=== PATIENT | female | born 1965 | race Caucasian/White ===

== ENCOUNTER 2022-06-20 14:52 | Observation (INO) | payer OTHER ==
--- NOTE | 2022-06-20 16:32 | ED ---
General Adult HPI - General Chief complaint: Recheck/Abnormal Lab/Rx Stated complaint: UTI Time Seen by Provider: 06/20/22 15:30 Source: EMS Mode of arrival: EMS Limitations: no limitations - History of Present Illness Initial comments: This patient is a 57-year-old woman who arrives in the emergency department today with the statement that she needs to have IV antibiotics. The patient explains that she has been treated a number of times as outpatient by her visiting physician for urinary tract infection. The patient states she does have indwelling urinary catheter. She states that when they checked the urine and infection is always found. She has tried a number of rounds of medication but continues to have findings in the urine. The patient denies having any symptoms related to this. Has not noted fever or chills. No chest pain, palpit ations, dyspnea. No pain in the abdomen. -: month(s) Severity scale (1-10): 0 Improves with: none Worsens with: none Treatments Prior to Arrival: other - Related Data Home Medications Medication Instructions Recorded Confirmed Baclofen [Lioresal] 20 mg PO BID@0900,1200 06/20/22 06/20/22 Baclofen [Lioresal] 40 mg PO HS 06/20/22 06/20/22 Cholecalciferol [Vitamin D3 (125 125 mcg PO BID@0900,1600 06/20/22 06/20/22 Mcg = 5000 Iu)] Siponimod [Mayzent] 2 mg PO DAILY@1400 06/20/22 06/20/22 Previous Rx's Medication Instructions Recorded Gabapentin [Neurontin] 100 mg PO BID #6 cap 06/22/22 Allergies Allergy/AdvReac Type Severity Reaction Status Date / Time No Known Allergies Allergy Verified 06/20/22 15:40 Review of Systems ROS Statement: Those systems with pertinent positive or pertinent negative responses have been documented in the HPI. ROS Other: All systems not noted in ROS Statement are negative. Constitutional: Denies: fever, chills, weakness Respiratory: Denies: cough, dyspnea Cardiovascular: Denies: chest pain, palpitations Gastrointestinal: Denies: abdominal pain, vomiting, diarrhea Genitourinary: Reports: as per HPI, other (Chronic indwelling catheter). Denies: dysuria, hematuria Skin: Denies: rash Neurological: Denies: headache, weakness, numbness Past Medical History Past Medical History: Musculoskeletal Disorder History of Any Multi-Drug Resistant Organisms: None Reported Past Surgical History: Cholecystectomy Past Psychological History: No Psychological Hx Reported Smoking Status: Former smoker Past Alcohol Use History: None Reported Past Drug Use History: None Reported - Past Family History Mother Family Medical History: No Reported History Additional Family Medical History / Comment(s): passed at age 74 Father Family Medical History: No Reported History General Exam Limitations: no limitations General appearance: alert, in no apparent distress Head exam: Present: atraumatic, normocephalic Eye exam: Present: normal appearance. Absent: scleral icterus, conjunctival injection Respiratory exam: Present: normal lung sounds bilaterally. Absent: respiratory distress, wheezes, rales, rhonchi, stridor Cardiovascular Exam: Present: regular rate, normal rhythm, normal heart sounds. Absent: systolic murmur, diastolic murmur, rubs, gallop GI/Abdominal exam: Present: soft. Absent: distended, tenderness, guarding, rebound, rigid, mass Extremities exam: Present: normal inspection, normal capillary refill, pedal edema (States this is chronic, unchanged). Absent: calf tenderness Neurological exam: Present: alert Skin exam: Present: warm, dry, intact, normal color. Absent: rash Course Vital Signs 06/20/22 06/20/22 06/20/22 15:02 16:04 19:00 Temperature 97.3 F L Pulse Rate 57 L 58 L Respiratory 18 18 Rate Blood Pressure 131/64 129/61 O2 Sat by Pulse 100 98 Oximetry Medical Decision Making - Medical Decision Making This patient is 57-year-old woman here with concern of possible urinary tract infection. She does have chronic indwelling Matthews catheter. She does arrive also with paperwork showing culture results for pseudomonas. Case is discussed with Dr. Matamoros, who had discussed the case with Dr. Alan, and will admit patient for further care related to urinary tract infection. Was pt. sent in by a medical professional or institution (, PA, ENGINEERING ASSISTANT, urgent care, hospital, or [facility]...) When possible be specific @ -[Patient sent by her primary physician Did you speak to anyone other than the patient for history (EMS, parent, family, police, friend...)? What history was obtained from this source @ -[Family Did you review nursing and triage notes (agree or disagree)? Why? @ -[I reviewed and agree with nursing and triage notes] Were old charts reviewed (outside hosp., previous admission, EMS record, old EKG, old radiological studies, urgent care reports/EKG's, [facility] records)? Report findings @ -[No old charts were reviewed] Differential Diagnosis (chest pain, altered mental status, abdominal pain women, abdominal pain men, vaginal bleeding, weakness, fever, dyspnea, syncope, headache, dizziness, GI bleed, back pain, seizure, CVA, palpatations, mental health, musculoskeletal)? @ -[The differential diagnosis for this visit includes urinary tract infection, colonize Matthews catheter EKG interpreted by me (3pts min.). @ -[ X-rays interpreted by me (1pt min.). @ -[None done] CT interpreted by me (1pt min.). @ -[None done] U/S interpreted by me (1pt. min.). @ -[None done] What testing was considered but not performed or refused? (CT, X-rays, U/S, labs)? Why? @ -[None] What meds were considered but not given or refused? Why? @ -[None] Did you discuss the management of the patient with other professionals (professionals i.e. , PA, ENGINEERING ASSISTANT, lab, RT, psych nurse, social service worker, criminal justice lawyer, teacher, planned giving officer, field nurse case manager)? Give summary @ -[Case discussed with admitting physician Was smoking cessation discussed for >3mins.? @ -[No] Was critical care preformed (if so, how long)? @ -[No] Were there social determinants of health that impacted care today? How? (Homelessness, low income, unemployed, alcoholism, drug addiction, transportation, low edu. Level, literacy, decrease access to med. care, prison, rehab)? @ -[No] Was there de-escalation of care discussed even if they declined (Discuss DNR or withdrawal of care, Hospice)? DNR status @ -[No] What co-morbidities impacted this encounter? (DM, HTN, Smoking, COPD, CAD, Cancer, CVA, ARF, Chemo, Hep., AIDS, mental health diagnosis, sleep apnea, mor bid obesity)? @ -[None] Was patient admitted / discharged? Hospital course, mention meds given and route, prescriptions, significant lab abnormalities, going to OR and other pertinent info. @ -[As above Undiagnosed new problem with uncertain prognosis? @ -[No] Drug Therapy requiring intensive monitoring for toxicity (Heparin, Nitro, Insulin, Cardizem)? @ -[No] Were any procedures done? @ -[No] Diagnosis/symptom? @ -[Acute pyuria Acute, or Chronic, or Acute on Chronic? @ -[default] Uncomplicated (without systemic symptoms) or Complicated (systemic symptoms)? @ -[default] Side effects of treatment? @ -[No] Exacerbation, Progression, or Severe Exacerbation? @ -[No] Poses a threat to life or bodily function? How? (Chest pain, [place], [place], pneumonia, PE, COPD, DKA, ARF, appy, cholecystitis, CVA, Diverticulitis, Homicidal, Suicidal, threat to staff... and all critical care pts) @ -[No] - Lab Data Result diagrams: 06/24/22 06:09 06/25/22 15:49 Lab Results 06/20/22 06/20/22 06/20/22 Range/Units 16:05 16:05 16:05 WBC 2.7 L (3.8-10.6) k/uL RBC 4.01 (3.80-5.40) m/uL Hgb 12.2 (11.4-16.0) gm/dL Hct 38.4 (34.0-46.0) % MCV 95.7 (80.0-100.0) fL MCH 30.3 (25.0-35.0) pg MCHC 31.7 (31.0-37.0) g/dL RDW 14.7 (11.5-15.5) % Plt Count 403 (150-450) k/uL MPV 9.2 Neutrophils % (Manual) 68 % Lymphocytes % (Manual) 7 % Monocytes % (Manual) 20 % Eosinophils % (Manual) 5 % Neutrophils # (Manual) 1.84 (1.3-7.7) k/uL Lymphocytes # (Manual) 0.19 L (1.0-4.8) k/uL Monocytes # (Manual) 0.54 (0-1.0) k/uL Eosinophils # (Manual) 0.14 (0-0.7) k/uL Nucleated RBCs 0 (0-0) /100 WBC Manual Slide Review Performed RBC Morphology Normal Plasma Lactic Acid Josh 0.8 (0.7-2.0) mmol/L Urine Color Light Yellow Urine Appearance Cloudy H (Clear) Urine pH 6.5 (5.0-8.0) Ur Specific [place] 1.006 (1.001-1.035) Urine Protein Negative (Negative) Urine Glucose (UA) Negative (Negative) Urine Ketones Negative (Negative) Urine Blood Negative (Negative) Urine Nitrite Negative (Negative) Urine Bilirubin Negative (Negative) Urine Urobilinogen <2.0 (<2.0) mg/dL Ur Leukocyte Esterase Large H (Negative) Urine RBC 2 (0-5) /hpf Urine WBC 12 H (0-5) /hpf Urine Bacteria Rare H (None) /hpf Disposition Clinical Impression: Urinary tract infection Disposition: ADMITTED IP TO THIS HOSP Condition: Good Is patient prescribed a controlled substance at d/c from ED?: No
[2022-06-20 16:33] LABS: HCT 38.4 % (34.0-46.0); HGB 12.2 gm/dL (11.4-16.0); MCH 30.3 pg (25.0-35.0); MCHC 31.7 g/dL (31.0-37.0); MCV 95.7 fL (80.0-100.0); Mean Platelet Volume 9.2; Platelet Count 403 k/uL (150-450); RBC 4.01 m/uL (3.80-5.40); RDW 14.7 % (11.5-15.5); WBC 2.7 k/uL (3.8-10.6)
[2022-06-20 16:50] LABS: Appearance,Urine Cloudy (Clear); Bacteria,Urine Rare /hpf; Bilirubin,Urine Negative (Negative); Blood,Urine Negative (Negative); Color,Urine Light Yellow; Glucose,Urine (UA) Negative (Negative); Ketones,Urine Negative (Negative); Leukocyte Esterase,Urine Large (Negative); Nitrite,Urine Negative (Negative); PH, Urine 6.5 (5.0-8.0); Protein,Urine Negative (Negative); RBC,Urine 2 /hpf (0-5); Specific Gravity,Urine 1.006 (1.001-1.035); Urobilinogen,Urine <2.0 mg/dL (<2.0); WBC,Urine 12 /hpf (0-5)
[2022-06-20 17:18] LABS: Eosinophils # (M) 0.14 k/uL (0-0.7); Lymphocytes # (M) 0.19 k/uL (1.0-4.8); Monocytes # (M) 0.54 k/uL (0-1.0); Neutrophils # (M) 1.84 k/uL (1.3-7.7); Neutrophils % (M) 68 %; Nucleated Red Blood Cells 0 /100 WBC (0-0); Total Cells Counted 100
[2022-06-20 17:19] LABS: RBC Morphology Normal
[2022-06-20] MEDS ORDERED: NALOXONE 0.4 MG/ML 1 ML VIAL IV PRN (17:46)
[2022-06-20] MEDS: SODIUM CHLORIDE 0.9% 1,000 ML IV SCH (19:02)
[2022-06-20] MEDS: FAMOTIDINE 20 MG TAB PO SCH (19:46)
[2022-06-20] MEDS: ACETAMINOPHEN TAB 325 MG TAB PO PRN (19:46)
[2022-06-20] MEDS ORDERED: CALCIUM CARBONATE 500 MG CHEWABLE PO PRN (21:09)
[2022-06-20] MEDS ORDERED: LORazepam 0.5 MG TAB PO PRN (21:09)
[2022-06-20] MEDS ORDERED: ONDANSETRON 4 MG/2 ML VIAL IVP PRN (21:09)
[2022-06-20] MEDS ORDERED: MELATONIN 3 MG TABLET PO PRN (21:09)
[2022-06-20] MEDS ORDERED: LACTULOSE 20 GM/30 ML CUP PO PRN (21:09)
--- NOTE | 2022-06-20 21:16 | P.HPIM ---
History of Present Illness H&P Date: 06/20/22 Chief Complaint: Urine culture positive This is a pleasant 57-year-old patient, follows with visiting physicians Dr. Alan. Long-standing history of multiple sclerosis. She is more weak on the right side. She is able to move her right arm a bit. Very little to the right leg. We also on the left leg. During the pandemic with no therapy in the left leg also became weak. She is able to use her left arm. She does get spasm on the right leg. Patient's had a Matthews catheter for about 4 months. Last changed 5 days ago. Does have control of her bowel movements and wet diapers. Appetite is good. No fever no chills. Denies any burning/dysuria She was sent in by her primary doctor, as the urine was showing resistant organisms. She's had 3 courses of antibiotics recently including a visit to [facility], [facility]. Review of systems: GEN.: None EYES: None HEENT: None NECK: None RESPIRATORY: None CARDIOVASCULAR: None GASTROINTESTINAL: None GENITOURINARY: Matthews MUSCULOSKELETAL: [Right site spasms LYMPHATICS: None HEMATOLOGICAL: None PSYCHIATRY: None NEUROLOGICAL: Right lower extremity weaker than left lower extremity. Also right upper extremity weak. Some contracture Past medical history to include: Multiple sclerosis. Non-ambulatory. Chronic Matthews catheter. Physical examination: VITAL SIGNS: 97.3, 58, 18, 129/61, 98% room air GENERAL: BMI 20.2, declining but awake slightly anxious. EYES: Pupils equal. Conjunctiva normal. HEENT: External appearance of nose and ears normal, oral cavity grossly normal. NECK: JVD not raised; masses not palpable. HEART: First and second heart sounds are normal; no edema. LUNGS: Respiratory rate normal; clear to auscultation. ABDOMEN: Soft, nontender, liver spleen not palpable, no masses palpable. Matthews catheter PSYCH: Alert and oriented x3; mood and affect a bit anxiousl. MUSCULOSKELETAL:No Clubbing/cyanosis;muscles-grossly intact NEUROLOGICAL: [Cranial nerves grossly intact; no facial asymmetry, power in the right arm 1/5, part of the right lower extremity 1 over 5. Power of the left lower extremity 2/5. Right hand contracted. Patient has some sensation in the right side LYMPHATICS: No lymph nodes palpable in the axilla and neck INVESTIGATIONS, reviewed in the clinical context: White count 2.7 hemoglobin 12.2 platelets 103 UA positive for leukoesterase. 12 WBC. Rare bacteria. Negative nitrite. Assessment and plan: -Patient was sent in for abnormal urine with culture as outpatient. Patient does have any fever or chills. No dysuria. Leukopenia could suggest infection. But the differential shows low lymphocytes. This could be asymptomatic bacteria the presence of Matthews catheter. ID is consulted. Get their input -Chronic bladder dysfunction with chronic Matthews catheter. Matthews catheter was last changed 5 days ago. -Chronic medical debility from underlying multiple sclerosis Patient does use a wheelchair/motorized wheelchair. -Right hemiparesis from multiple sclerosis -Muscle spasms Baclofen. -Multiple sclerosis, chronic mayzent -DO NOT RESUSCITATE per patient wishes Past Medical History Past Medical History: Musculoskeletal Disorder History of Any Multi-Drug Resistant Organisms: None Reported Past Surgical History: Cholecystectomy Past Psychological History: No Psychological Hx Reported Smoking Status: Former smoker Past Alcohol Use History: None Reported Past Drug Use History: None Reported Medications and Allergies Home Medications Medication Instructions Recorded Confirmed Type Baclofen [Lioresal] 20 mg PO BID@0900,1200 06/20/22 06/20/22 History Baclofen [Lioresal] 40 mg PO HS 06/20/22 06/20/22 History Cholecalciferol [Vitamin D3 (125 125 mcg PO BID@0900,1600 06/20/22 06/20/22 History Mcg = 5000 Iu)] Gabapentin [Neurontin] 100 mg PO BID 06/20/22 06/20/22 History Siponimod [Mayzent] 2 mg PO DAILY@1400 06/20/22 06/20/22 History Allergies Allergy/AdvReac Type Severity Reaction Status Date / Time No Known Allergies Allergy Verified 06/20/22 15:40 Physical Exam Vitals: Vital Signs Temp Pulse Resp BP Pulse Ox 06/20/22 19:00 58 L 18 129/61 98 06/20/22 16:04 97.3 F L 06/20/22 15:02 57 L 18 131/64 100 Intake and Output 06/20/22 06/20/22 06/20/22 06:59 14:59 22:59 Other: Voiding Method Indwelling Catheter Weight 58.513 kg Results CBC & Chem 7: 06/20/22 16:05 Labs: Abnormal Lab Results - Last 24 Hours (Table) 06/20/22 06/20/22 Range/Units 16:05 16:05 WBC 2.7 L (3.8-10.6) k/uL Lymphocytes # (Manual) 0.19 L (1.0-4.8) k/uL Urine Appearance Cloudy H (Clear) Ur Leukocyte Esterase Large H (Negative) Urine WBC 12 H (0-5) /hpf Urine Bacteria Rare H (None) /hpf
[2022-06-20] MEDS: GABAPENTIN 100 MG CAP PO SCH (22:19)
[2022-06-20] MEDS: BACLOFEN 10 MG TAB PO SCH (22:49)
[2022-06-21] MEDS: CHOLECALCIFEROL 125 MCG (5000 IU) TABLET PO SCH ×2 (09:20→16:52)
[2022-06-21] MEDS: FAMOTIDINE 20 MG TAB PO SCH ×2 (09:20→20:10)
[2022-06-21] MEDS: BACLOFEN 10 MG TAB PO SCH ×3 (09:20→20:10)
[2022-06-21] MEDS: ENOXAPARIN 40 MG/0.4 ML SYRINGE SQ SCH (09:20)
[2022-06-21] MEDS: GABAPENTIN 100 MG CAP PO SCH ×2 (09:20→20:10)
[2022-06-21] MEDS: SIPONIMOD 2 MG PO SCH (16:01)
[2022-06-21] MEDS: ACETAMINOPHEN TAB 325 MG TAB PO PRN (16:52)
[2022-06-21] MEDS: SODIUM CHLORIDE 0.9% 1,000 ML IV SCH (18:17)
--- NOTE | 2022-06-21 18:53 | P.PN ---
Progress Note - Text Progress Note Date: 06/21/22 Chief Complaint: Urine culture positive This is a pleasant 57-year-old patient, follows with visiting physicians Dr. Alan. Long-standing history of multiple sclerosis. She is more weak on the right side. She is able to move her right arm a bit. Very little to the right leg. We also on the left leg. During the pandemic with no therapy in the left leg also became weak. She is able to use her left arm. She does get spasm on the right leg. Patient's had a Matthews catheter for about 4 months. Last changed 5 days ago. Does have control of her bowel movements and wet diapers. Appetite is good. No fever no chills. Denies any burning/dysuria She was sent in by her primary doctor, as the urine was showing resistant organisms. She's had 3 courses of antibiotics recently including a visit to [facility], [facility]. 06/21/2022: Patient seen by Dr. Mireles from [place]. No acute UTI. No indications antibiotics. We discussed. He also spoke to patient's family doctor Dr. Alan. I also spoke to his teammate. Patient subsequently requested possible rehab. Case management involved. PTOT consulted. Will see patient qualifies for rehab. Has been a total assist. Total time spent today more than 55 minutes Active Medications Acetaminophen (Acetaminophen Tab 325 Mg Tab) 650 mg PO Q6HR PRN PRN Reason: Mild Pain or Fever > 100.5 Last Admin: 06/21/22 16:52 Dose: 650 mg Baclofen (Baclofen 10 Mg Tab) 20 mg PO BID@0900,1200 [facility] Last Admin: 06/21/22 13:02 Dose: 20 mg Baclofen (Baclofen 10 Mg Tab) 40 mg PO HS [facility] Last Admin: 06/20/22 22:49 Dose: 40 mg Calcium Carbonate/Glycine (Calcium Carbonate 500 Mg Chewable) 1,000 mg PO Q4HR PRN PRN Reason: Dyspepsia Cholecalciferol (Cholecalciferol 125 Mcg (5000 Iu) Tablet) 125 mcg PO BID@0900,1600 [facility] Last Admin: 06/21/22 16:52 Dose: 125 mcg Enoxaparin Sodium (Enoxaparin 40 Mg/0.4 Ml Syringe) 40 mg SQ DAILY [facility] Last Admin: 06/21/22 09:20 Dose: 40 mg Famotidine (Famotidine 20 Mg Tab) 20 mg PO BID [facility] Last Admin: 06/21/22 09:20 Dose: 20 mg Gabapentin (Gabapentin 100 Mg Cap) 100 mg PO BID [facility] Last Admin: 06/21/22 09:20 Dose: 100 mg Sodium Chloride (Saline 0.9%) 1,000 mls @ 20 mls/hr IV .Q24H [facility] Last Admin: 06/21/22 18:17 Dose: 20 mls/hr Lactulose (Lactulose 20 Gm/30 Ml Cup) 20 gm PO DAILY PRN PRN Reason: Constipation Lorazepam (Lorazepam 0.5 Mg Tab) 0.5 mg PO Q6HR PRN PRN Reason: Anxiety Melatonin (Melatonin 3 Mg Tablet) 3 mg PO HS PRN PRN Reason: Insomnia Naloxone HCl (Naloxone 0.4 Mg/Ml 1 Ml Vial) 0.2 mg IV Q2M PRN PRN Reason: Opioid Reversal Non-Formulary Medication (Siponimod [Mayzent]) 2 mg PO DAILY@1400 [facility] Last Admin: 06/21/22 16:01 Dose: 2 mg Ondansetron HCl (Ondansetron 4 Mg/2 Ml Vial) 4 mg IVP Q8HR PRN PRN Reason: Nausea And Vomiting Past medical history to include: Multiple sclerosis. Non-ambulatory. Chronic Matthews catheter. Physical examination: VITAL SIGNS: 97.9, 61, 18, 1.5 x 62, 99% room air GENERAL: Laying in bed, comfortable EYES: Pupils equal. Conjunctiva normal. HEENT: External appearance of nose and ears normal, oral cavity grossly normal. NECK: JVD not raised; masses not palpable. HEART: First and second heart sounds are normal; no edema. LUNGS: Respiratory rate normal; clear to auscultation. ABDOMEN: Soft, nontender, liver spleen not palpable, no masses palpable. Matthews catheter PSYCH: Alert and oriented x3; mood and affect a bit anxiousl. MUSCULOSKELETAL:No Clubbing/cyanosis;muscles-grossly intact NEUROLOGICAL: [Cranial nerves grossly intact; no facial asymmetry, power in the right arm 1/5, part of the right lower extremity 1 over 5. Power of the left lower extremity 2/5. Right hand contracted. Patient has some sensation in the right side INVESTIGATIONS, reviewed in the clinical context: White count 2.7 hemoglobin 12.2 platelets 103 UA positive for leukoesterase. 12 WBC. Rare bacteria. Negative nitrite. Assessment and plan: -Asymptomatic bacteriuria. From chronic Matthews catheter. No indication IV antibiotics as discussed with ID. -Chronic bladder dysfunction with chronic Matthews catheter. Matthews catheter was last changed 5 days ago. -Chronic medical debility from underlying multiple sclerosis Patient does use a wheelchair/motorized wheelchair. -Right hemiparesis from multiple sclerosis -Muscle spasms Baclofen. -Multiple sclerosis, chronic mayzent -DO NOT RESUSCITATE per patient wishes Patient wishes to be evaluated for rehab. PTOT involved. compensation and benefits manager consulted.
[2022-06-21] MEDS ORDERED: BACLOFEN 10 MG TAB PO SCH (21:00)
--- NOTE | 2022-06-21 23:15 | P.CONS ---
History of Present Illness - Reason for Consult Consult date: 06/21/22 Urinary tract infection Requesting physician: Hawk Webster - Chief Complaint Positive urine culture as an outpatient X few days - History of Present Illness Patient is a 57-year-old female with a past medical history sniffing for MS in this patient also with a history of recurrent UTI patient apparently recently did have a urine culture done in the outpatient setting on 06/13/2022 came back positive with Pseudomonas aeruginosa that was resistant to Cipro and Levaquin as the patient was sent to the ER for IV antibiotic therapy, however no specifically why she did have a urine culture done with a 15 patient also that her physician wanted to make sure she does not have an infection patient denies having any fever or any chills patient denies having any burning of urine or any suprapubic pain at the time and that urine culture were obtained patient on presentation to the hospital was afebrile and no fever has been recorded subsequently patient denies having any fever or chills no chest pain no shortness of breath or cough no nausea vomiting no abdominal pain and no diarrhea as mentioned earlier no fever was recorded during the hospital stay white count was slightly low 2.7 patient did have a UA which was cloudy with large leukocyte esterase 12 WBC patient was admitted to hospital infectious disease was consulted regarding need for any antibiotic therapy at this point patient also noticed to have a sacral pressure ulcer and need for continued loc al wound care currently being treated with a skin barrier cream per the patient denies having any pain or any discomfort to the sacral area Review of Systems Positive point has been mentioned in the HPI rest of the systems are negative Past Medical History Past Medical History: Musculoskeletal Disorder Additional Past Medical History / Comment(s): MS, non ambulatory for 2 years. chronic urinary catheter. multiple UTI's History of Any Multi-Drug Resistant Organisms: None Reported Past Surgical History: Cholecystectomy Past Anesthesia/Blood Transfusion Reactions: No Reported Reaction Past Psychological History: No Psychological Hx Reported Smoking Status: Former smoker Past Alcohol Use History: None Reported Past Drug Use History: None Reported - Past Family History Mother Family Medical History: No Reported History Additional Family Medical History / Comment(s): passed at age 74 Father Family Medical History: No Reported History Medications and Allergies Home Medications Medication Instructions Recorded Confirmed Type Baclofen [Lioresal] 20 mg PO BID@0900,1200 06/20/22 06/20/22 History Baclofen [Lioresal] 40 mg PO HS 06/20/22 06/20/22 History Cholecalciferol [Vitamin D3 (125 125 mcg PO BID@0900,1600 06/20/22 06/20/22 History Mcg = 5000 Iu)] Siponimod [Mayzent] 2 mg PO DAILY@1400 06/20/22 06/20/22 History Gabapentin [Neurontin] 100 mg PO BID #6 cap 06/22/22 Rx Allergies Allergy/AdvReac Type Severity Reaction Status Date / Time No Known Allergies Allergy Verified 06/20/22 15:40 Physical Exam Vitals: Vital Signs Temp Pulse Pulse Resp BP BP Pulse Ox 06/21/22 08:00 68 18 06/21/22 07:00 97.8 F 68 18 102/54 96 06/21/22 02:00 97.2 F L 63 18 125/67 95 06/20/22 21:50 97.5 F L 63 17 130/74 98 06/20/22 19:00 58 L 18 129/61 98 06/20/22 16:04 97.3 F L 06/20/22 15:02 57 L 18 131/64 100 Intake and Output 06/20/22 06/21/22 06/21/22 22:59 06:59 14:59 Output Total 3950 Balance -3950 Output: Urine 3950 Uretheral (Matthews) 1800 Other: Voiding Method Indwelling Catheter Indwelling Catheter Weight 58.513 kg GENERAL DESCRIPTION: Middle-aged male lying in bed, no distress. No tachypnea or accessory muscle of respiration use. HEENT: Shows Pallor , no scleral icterus. Oral mucous membrane is dry. No p haryngeal erythema or thrush NECK: Trachea central, no thyromegaly. LUNGS: Unlabored breathing. Clear to auscultation anteriorly. No wheeze or crackle. HEART: S1, S2, regular rate and rhythm. No loud murmur ABDOMEN: Soft, no tenderness , guarding or rigidity, no organomegaly EXTREMITIES: No edema of feet. SKIN: No rash, stage I sacral pressure ulcer with no cellulitis NEUROLOGICAL: The patient is awake, alert, oriented x3, mood and affect normal. Results CBC & Chem 7: 06/20/22 16:05 Labs: Abnormal Lab Results - Last 24 Hours (Table) 06/20/22 06/20/22 Range/Units 16:05 16:05 WBC 2.7 L (3.8-10.6) k/uL Lymphocytes # (Manual) 0.19 L (1.0-4.8) k/uL Urine Appearance Cloudy H (Clear) Ur Leukocyte Esterase Large H (Negative) Urine WBC 12 H (0-5) /hpf Urine Bacteria Rare H (None) /hpf Microbiology - Last 24 Hours (Table) 06/20/22 16:05 Urine Culture - Preliminary Urine,Catheterized Assessment and Plan (1) Positive urine culture Current Visit: Yes Status: Acute Code(s): R82.79 - OTHER ABNORMAL FINDINGS ON MICROBIOLOG EXAMINATION OF URINE SNOMED Code(s): 771683314 (2) Stage I pressure ulcer of sacral region Current Visit: Yes Status: Acute Code(s): L89.151 - PRESSURE ULCER OF SACRAL REGION, STAGE 1 SNOMED Code(s): 75092400766737 Plan: 1patient presented to hospital with a positive urine culture done in the outpatient setting growing Pseudomonas aeruginosa likely representing Matthews colonization versus asymptomatic bacteriuria as the patient currently do not have any urinary symptoms not running any fever White count is normal this was explained to the patient and also discussed with her primary care physician in the outpatient setting on the phone. 2there is no need for antibiotic therapy patient has been instructed not to pr ovide urine sample unless she has symptoms of burning of urine and suprapubic pain fever or feeling lethargic. 3patient did have a stage I sacral pressure ulcer given advice skin barrier cream and keep the area of the pressure with the frequent change of position we will follow on clinical condition and cultures to further adjust medication if needed Thank you for this consultation we will follow the patient along with you Time with Patient: Greater than 30
[2022-06-22] MEDS: ENOXAPARIN 40 MG/0.4 ML SYRINGE SQ SCH (08:43)
[2022-06-22] MEDS: FAMOTIDINE 20 MG TAB PO SCH ×2 (08:43→20:22)
[2022-06-22] MEDS: CHOLECALCIFEROL 125 MCG (5000 IU) TABLET PO SCH ×2 (08:43→17:10)
[2022-06-22] MEDS: GABAPENTIN 100 MG CAP PO SCH ×2 (08:43→20:22)
[2022-06-22] MEDS: BACLOFEN 10 MG TAB PO SCH ×3 (08:43→20:22)
[2022-06-22] MEDS: SIPONIMOD 2 MG PO SCH (14:18)
--- NOTE | 2022-06-22 15:57 | P.PN ---
Progress Note - Text Progress Note Date: 06/22/22 Chief Complaint: Urine culture positive This is a pleasant 57-year-old patient, follows with visiting physicians Dr. Alan. Long-standing history of multiple sclerosis. She is more weak on the right side. She is able to move her right arm a bit. Very little to the right leg. We also on the left leg. During the pandemic with no therapy in the left leg also became weak. She is able to use her left arm. She does get spasm on the right leg. Patient's had a Matthews catheter for about 4 months. Last changed 5 days ago. Does have control of her bowel movements and wet diapers. Appetite is good. No fever no chills. Denies any burning/dysuria She was sent in by her primary doctor, as the urine was showing resistant organisms. She's had 3 courses of antibiotics recently including a visit to [facility], [facility]. 06/21/2022: Patient seen by Dr. Weir from [place]. No acute UTI. No indications antibiotics. We discussed. He also spoke to patient's family doctor Dr. Alan. I also spoke to his teammate. Patient subsequently requested possible rehab. Case management involved. PTOT consulted. Will see patient qualifies for rehab. Has been a total assist. Total time spent today more than 55 minutes 06/22/2022: Resting in bed. Comfortable. Seen by physical therapy. Discussed with rehabilitation caseworker. Cesia. Patient with the exception at rehab. Pending authorization from her insurance company. Not be available today. Active Medications Acetaminophen (Acetaminophen Tab 325 Mg Tab) 650 mg PO Q6HR PRN PRN Reason: Mild Pain or Fever > 100.5 Last Admin: 06/21/22 16:52 Dose: 650 mg Baclofen (Baclofen 10 Mg Tab) 20 mg PO BID@0900,1200 [facility] Last Admin: 06/22/22 14:19 Dose: 20 mg Baclofen (Baclofen 10 Mg Tab) 40 mg PO HS [facility] Last Admin: 06/21/22 20:10 Dose: 40 mg Calcium Carbonate/Glycine (Calcium Carbonate 500 Mg Chewable) 1,000 mg PO Q4HR PRN PRN Reason: Dyspepsia Cholecalciferol (Cholecalciferol 125 Mcg (5000 Iu) Tablet) 125 mcg PO BID@0900,1600 [facility] Last Admin: 06/22/22 08:43 Dose: 125 mcg Enoxaparin Sodium (Enoxaparin 40 Mg/0.4 Ml Syringe) 40 mg SQ DAILY [facility] Last Admin: 06/22/22 08:43 Dose: 40 mg Famotidine (Famotidine 20 Mg Tab) 20 mg PO BID [facility] Last Admin: 06/22/22 08:43 Dose: 20 mg Gabapentin (Gabapentin 100 Mg Cap) 100 mg PO BID [facility] Last Admin: 06/22/22 08:43 Dose: 100 mg Sodium Chloride (Saline 0.9%) 1,000 mls @ 20 mls/hr IV .Q24H [facility] Last Admin: 06/21/22 18:17 Dose: 20 mls/hr Lactulose (Lactulose 20 Gm/30 Ml Cup) 20 gm PO DAILY PRN PRN Reason: Constipation Lorazepam (Lorazepam 0.5 Mg Tab) 0.5 mg PO Q6HR PRN PRN Reason: Anxiety Melatonin (Melatonin 3 Mg Tablet) 3 mg PO HS PRN PRN Reason: Insomnia Naloxone HCl (Naloxone 0.4 Mg/Ml 1 Ml Vial) 0.2 mg IV Q2M PRN PRN Reason: Opioid Reversal Non-Formulary Medication (Siponimod [Mayzent]) 2 mg PO DAILY@1400 [facility] Last Admin: 06/22/22 14:18 Dose: 2 mg Ondansetron HCl (Ondansetron 4 Mg/2 Ml Vial) 4 mg IVP Q8HR PRN PRN Reason: Nausea And Vomiting Past medical history to include: Multiple sclerosis. Non-ambulatory. Chronic Matthews catheter. Physical examination: VITAL SIGNS: 98.5, 76, 18, 109/67, 95% room air GENERAL: Laying in bed, comfortable EYES: Pupils equal. Conjunctiva normal. HEENT: External appearance of nose and ears normal, oral cavity grossly normal. NECK: JVD not raised; masses not palpable. HEART: First and second heart sounds are normal; no edema. LUNGS: Respiratory rate normal; clear to auscultation. ABDOMEN: Soft, nontender, liver spleen not palpable, no masses palpable. Matthews catheter PSYCH: Alert and oriented x3; mood and affect a bit anxiousl. MUSCULOSKELETAL:No Clubbing/cyanosis;muscles-grossly intact NEUROLOGICAL: [Cranial nerves grossly intact; no facial asymmetry, power in the right arm 1/5, part of the right lower extremity 1 over 5. Power of the left lower extremity 2/5. Right hand contracted. Patient has some sensation in the right side INVESTIGATIONS, reviewed in the clinical context: White count 2.7 hemoglobin 12.2 platelets 103 UA positive for leukoesterase. 12 WBC. Rare bacteria. Negative nitrite. Assessment and plan: -Asymptomatic bacteriuria. From chronic Matthews catheter. No indication IV antibiotics as discussed with ID. -Chronic bladder dysfunction with chronic Matthews catheter. Matthews catheter was last changed 5 days prior to admission -Chronic medical debility from underlying multiple sclerosis Patient does use a wheelchair/motorized wheelchair. -Right hemiparesis from multiple sclerosis -Muscle spasms Baclofen. -Multiple sclerosis, chronic mayzent -DO NOT RESUSCITATE per patient wishes Patient been accepted at [facility], pending authorization from insurance company.
[2022-06-22] MEDS: SODIUM CHLORIDE 0.9% 1,000 ML IV SCH (19:16)
[2022-06-22] MEDS: ACETAMINOPHEN TAB 325 MG TAB PO PRN (22:03)
[2022-06-23] MEDS: ENOXAPARIN 40 MG/0.4 ML SYRINGE SQ SCH (08:49)
[2022-06-23] MEDS: BACLOFEN 10 MG TAB PO SCH ×3 (08:49→20:42)
[2022-06-23] MEDS: CHOLECALCIFEROL 125 MCG (5000 IU) TABLET PO SCH ×2 (08:49→17:26)
[2022-06-23] MEDS: FAMOTIDINE 20 MG TAB PO SCH ×2 (08:50→20:43)
[2022-06-23] MEDS: GABAPENTIN 100 MG CAP PO SCH ×2 (08:50→20:42)
[2022-06-23] MEDS: ACETAMINOPHEN TAB 325 MG TAB PO PRN ×2 (10:28→20:43)
--- NOTE | 2022-06-23 12:07 | P.PN ---
Subjective Progress Note Date: 06/22/22 Principal diagnosis: Positive urine culture with Pseudomonas Patient is a 57-year-old female with a past medical history significant for MS in this patient also with a history of recurrent UTI patient apparently recently did have a urine culture done in the outpatient setting on 06/13/2022 came back positive with Pseudomonas aeruginosa that was resistant to Cipro and Levaquin as the patient was sent to the ER for IV antibiotic therapy, patient did have MS and a chronic indwelling Matthews catheter. On today's evaluation that is 06/22/2022, the patient denies having any fever or any chills, the patient denies having any chest pain or shortness of breath or cough no abdominal pain no nausea no vomiting and no diarrhea Objective - Vital Signs Vital signs: Vital Signs Temp 98.5 F 06/22/22 07:00 Pulse 76 06/22/22 08:00 Resp 18 06/22/22 08:00 BP 109/67 06/22/22 07:00 Pulse Ox 95 06/22/22 07:00 FiO2 Intake & Output 06/21/22 06/22/22 06/22/22 18:59 06:59 18:59 Intake Total 120 120 Output Total 1000 800 800 Balance -880 -800 -680 Intake: Oral 120 120 Output: Urine 1000 800 800 Other: Voiding Method Indwelling Catheter Indwelling Catheter Indwelling Catheter # Voids 1,200 1,200 # Bowel Movements 2 2 2 - Exam GENERAL DESCRIPTION: Middle-aged female lying in bed in no distress RESPIRATORY SYSTEM: Unlabored breathing , decreased breath sounds at bases HEART: S1 S2 regular rate and rhythm , ABDOMEN: Soft , no tenderness EXTREMITIES: No edema feet - Labs CBC & Chem 7: 06/20/22 16:05 Labs: Microbiology - Last 24 Hours (Table) 06/20/22 16:05 Urine Culture - Preliminary Urine,Catheterized Gram Neg Bacilli 06/20/22 19:40 Blood Culture - Preliminary Blood No Growth after 24 hours 06/20/22 19:30 Blood Culture - Preliminary Blood No Growth after 24 hours Assessment and Plan (1) Positive urine culture Current Visit: Yes Status: Acute Code(s): R82.79 - OTHER ABNORMAL FINDINGS ON MICROBIOLOG EXAMINATION OF URINE SNOMED Code(s): 374573391 (2) Stage I pressure ulcer of sacral region Current Visit: Yes Status: Acute Code(s): L89.151 - PRESSURE ULCER OF SACRAL REGION, STAGE 1 SNOMED Code(s): 83347563196314 Plan: 1patient presented to hospital with a positive urine culture done in the outp atient setting growing Pseudomonas aeruginosa likely representing Matthews colonization versus asymptomatic bacteriuria as the patient currently do not have any urinary symptoms not running any fever White count is normal this was explained to the patient and also discussed with her primary care physician in the outpatient setting on the phone. 2there is no need for antibiotic therapy patient will monitor closely off antibiotic therapy at this point 3patient did have a stage I sacral pressure ulcer given advice skin barrier cream and keep the area of the pressure with the frequent change of position Time with Patient: Less than 30
--- NOTE | 2022-06-23 14:41 | P.PN ---
Subjective Progress Note Date: 06/23/22 Principal diagnosis: Positive urine culture with Pseudomonas Patient is a 57-year-old female with a past medical history significant for MS in this patient also with a history of recurrent UTI patient apparently recently did have a urine culture done in the outpatient setting on 06/13/2022 came back positive with Pseudomonas aeruginosa that was resistant to Cipro and Levaquin as the patient was sent to the ER for IV antibiotic therapy, patient did have MS and a chronic indwelling Matthews catheter. On today's evaluation that is 06/23/2022, the patient remains to be afebrile, the patient denies chest pain or shortness of breath or cough , denies having any nausea no vomiting no abdominal pain and no diarrhea Objective - Vital Signs Vital signs: Vital Signs Temp 97.9 F 06/23/22 07:00 Pulse 66 06/23/22 07:00 Resp 18 06/23/22 02:00 BP 100/67 06/23/22 07:00 Pulse Ox 96 06/23/22 07:00 FiO2 Intake & Output 06/22/22 06/23/22 06/23/22 18:59 06:59 18:59 Intake Total 120 473 Output Total 2400 2200 Balance -2280 -2200 473 Intake: Oral 120 473 Output: Urine 2400 2200 Other: Voiding Method Indwelling Catheter Indwelling Catheter Indwelling Catheter # Voids 1,200 # Bowel Movements 1 2 - Exam GENERAL DESCRIPTION: Middle-aged female lying in bed in no distress RESPIRATORY SYSTEM: Unlabored breathing , decreased breath sounds at bases HEART: S1 S2 regular rate and rhythm , ABDOMEN: Soft , no tenderness EXTREMITIES: No edema feet - Labs CBC & Chem 7: 06/20/22 16:05 Labs: Microbiology - Last 24 Hours (Table) 06/20/22 19:30 Blood Culture - Final Blood 06/20/22 19:40 Blood Culture - Preliminary Blood No Growth after 48 hours 06/20/22 16:05 Urine Culture - Preliminary Urine,Catheterized Gram Neg Bacilli Assessment and Plan (1) Positive blood culture Current Visit: Yes Status: Acute Code(s): R78.81 - BACTEREMIA SNOMED Code(s): 430693036 (2) Positive urine culture Current Visit: Yes Status: Acute Code(s): R82.79 - OTHER ABNORMAL FINDINGS ON MICROBIOLOG EXAMINATION OF URINE SNOMED Code(s): 390819098 (3) Stage I pressure ulcer of sacral region Current Visit: Yes Status: Acute Code(s): L89.151 - PRESSURE ULCER OF SACRAL REGION, STAGE 1 SNOMED Code(s): 83366431835918 Plan: 1patient presented to hospital with a positive urine culture done in the outpatient setting growing Pseudomonas aeruginosa likely representing Matthews colonization versus asymptomatic bacteriuria as the patient currently do not have any urinary symptoms not running any fever White count is normal this was explained to the patient and also discussed with her primary care physician in the outpatient setting on the phone. 2there is no need for antibiotic therapy patient will monitor closely off antibiotic therapy at this point 3patient did have a stage I sacral pressure ulcer given advice skin barrier cream and keep the area of the pressure with the frequent change of position 4-patient with a positive blood culture with staph epi likely skin contamination and no need for vancomycin Time with Patient: Less than 30
[2022-06-23] MEDS: SIPONIMOD 2 MG PO SCH (15:06)
[2022-06-23] MEDS: SODIUM CHLORIDE 0.9% 1,000 ML IV SCH (20:32)
--- NOTE | 2022-06-23 22:32 | P.PN ---
Subjective Progress Note Date: 06/23/22 This is a 57 year old female who is admitted for possible UTI. History of MS. Patient has been evaluated by ID and currently recommending no antibiotics on discharge. Patient has chronic indwelling catheter and urinalysis is not suggestive of current infection at this time. Patient has chronic bacteriruea urine culture did finalize as pseudomonas. Blood culture showing coagulase negative staph x 1. No acute complaints overnight. Pending prior auth for DC [employer], not obtained today. Hemodynamically stable cleared for DC. Review of Systems Constitutional: Denied any fatigue denied any fever. Cardio vascular: denied any chest pain, palpitations Gastrointestinal: denied any nausea, vomiting, diarrhea Pulmonary: Denied any shortness of breath cough Neurologic denied any new focal deficits All inpatient medications were reviewed and appropriate changes in these medications as dictated in the interval history and assessment and plan. Physical examination: GENERAL: BMI 34, reclining in bed, comfortable and resting. Alert and oriented x 3. HEENT: Pupils equal. Conjunctiva normal. External appearance of nose and ears normal, oral cavity grossly normal. normocephalic. HEART: First and second heart sounds are normal; no edema. LUNGS: Respiratory rate normal; clear to auscultation. ABDOMEN: Soft, nontender, liver spleen not palpable, no masses palpable. Chronic IDC in place. MUSCULOSKELETAL:No Clubbing/cyanosis;muscles-grossly intact. Evidence of OA NEUROLOGICAL: Cranial nerves grossly intact; no facial asymmetry, power and sensation grossly intact. Assessment and Plan -Asymptomatic bacteriuria. From chronic Matthews catheter. Urine culture showing pseudomonas. Currently not on antibiotics. ID following. Chronic bacterurea. -Chronic bladder dysfunction with chronic Matthews catheter. Matthews catheter was last changed 5 days prior to admission -Chronic medical debility from underlying multiple sclerosis Patient does use a wheelchair/motorized wheelchair. -Right hemiparesis from multiple sclerosis -Muscle spasms Baclofen. -Multiple sclerosis, chronic mayzent -DO NOT RESUSCITATE per patient wishes Patient been accepted at [facility] [place], pending authorization from insurance company which was not obtained today. Patient will be monitored over the weekend as Saturday no social work/liason available for DC planning. D/C likely saturday to [facility]. Continue current supportive care. The impression and plan of care has been dictated by Nataliia Carpenter, Nurse Practitioner as directed. Dr. Alessandra MD I have performed a history and physical examination and medical decision making of this patient, discussed the same with the dictator, and agree with the dictators assessment and plan as written, documented as a scribe. Based on total visit time, I have performed more than 50% of this visit. Objective - Vital Signs Vital signs: Vital Signs Temp 98.2 F 06/23/22 15:00 Pulse 66 06/23/22 15:00 Resp 17 06/23/22 15:00 BP 110/63 06/23/22 15:00 Pulse Ox 99 06/23/22 15:00 FiO2 Intake & Output 06/22/22 06/23/22 06/23/22 18:59 06:59 18:59 Intake Total 120 573 Output Total 2400 2200 800 Balance -2280 -2200 -227 Intake: Oral 120 573 Output: Urine 2400 2200 800 Other: Voiding Method Indwelling Catheter Indwelling Catheter Indwelling Catheter # Voids 1,200 # Bowel Movements 1 2 - Labs CBC & Chem 7: 06/20/22 16:05 Labs: Microbiology - Last 24 Hours (Table) 06/20/22 16:05 Urine Culture - Final Urine,Catheterized Pseudomonas aeruginosa 06/20/22 19:30 Blood Culture Gram Stain - Preliminary Blood 06/20/22 19:30 Blood Culture - Final Blood 06/20/22 19:40 Blood Culture - Preliminary Blood No Growth after 48 hours Assessment and Plan Time with Patient: Less than 30
[2022-06-24] MEDS: GABAPENTIN 100 MG CAP PO SCH ×2 (08:31→21:13)
[2022-06-24] MEDS: ENOXAPARIN 40 MG/0.4 ML SYRINGE SQ SCH (08:31)
[2022-06-24] MEDS: FAMOTIDINE 20 MG TAB PO SCH ×2 (08:31→21:26)
[2022-06-24] MEDS: CHOLECALCIFEROL 125 MCG (5000 IU) TABLET PO SCH ×2 (08:31→16:16)
[2022-06-24] MEDS: BACLOFEN 10 MG TAB PO SCH ×3 (08:31→21:13)
[2022-06-24] MEDS: ACETAMINOPHEN TAB 325 MG TAB PO PRN ×2 (08:35→18:48)
[2022-06-24 09:18] LABS: Basophils # (A) 0.01 X 10*3/uL (0.00-0.10); Basophils % (A) 0.3 %; Eosinophils # (A) 0.06 X 10*3/uL (0.04-0.35); Eosinophils % (A) 1.6 %; HGB 12.4 g/dL (12.0-15.0); Immature Grans, Automated 0.3 %; Lymphocytes # (A) 0.12 X 10*3/uL (0.90-5.00); Lymphocytes % (A) 3.3 %; MCH 30.2 pg (27.0-32.0); MCHC 32.6 g/dL (32.0-37.0); MCV 92.7 fL (80.0-97.0); Mean Platelet Volume 10.7 fL (9.5-12.2); Monocytes # (A) 0.59 X 10*3/uL (0.20-1.00); NRBC Per 100 WBC 0 /100 WBCS (0.0-0.0); Neutrophils % (A) 78.5 %; Platelet Count 439 X 10*3/uL (140-440); RDW 15.5 % (11.5-14.5); WBC 3.69 X 10*3/uL (4.50-10.00)
[2022-06-24 09:49] LABS: ALT 66 U/L (8-44); AST 37 U/L (13-35); African American GFR (CKD) 117.9 (60.0-200.0); Albumin 4.2 g/dL (3.8-4.9); Albumin/Globulin Ratio 1.71 (1.60-3.17); Alkaline Phosphatase 258 U/L (41-126); BUN/Creat Ratio 22.12 Ratio (12.00-20.00); Blood Urea Nitrogen 12.5 mg/dL (9.0-27.0); C Reactive Protein <0.30 mg/dL (0.00-0.80); Calcium 9.9 mg/dL (8.7-10.3); Carbon Dioxide 28.6 mmol/L (20.0-27.5); Chloride 101 mmol/L (96-109); Globulin 2.5 g/dL (1.6-3.3); Glucose 104 mg/dL (70-110); Non-African American GFR(CKD) 101.8 (60.0-200.0); Potassium 4.6 mmol/L (3.5-5.5); Sodium 141 mmol/L (135-145); Total Bilirubin <0.15 mg/dL (0.30-1.20); Total Protein 6.7 g/dL (6.2-8.2)
[2022-06-24] MEDS: SIPONIMOD 2 MG PO SCH (13:45)
[2022-06-24] MEDS: SODIUM CHLORIDE 0.9% 1,000 ML IV SCH (16:07)
[2022-06-24 19:28] VITALS: PULSE 73
--- NOTE | 2022-06-24 22:06 | P.PN ---
Subjective Progress Note Date: 06/24/22 This is a 57 year old female who is admitted for possible UTI. History of MS. Patient has been evaluated by ID and currently recommending no antibiotics on discharge. Patient has chronic indwelling catheter and urinalysis is not suggestive of current infection at this time. Patient has chronic bacteriruea urine culture did finalize as pseudomonas. Blood culture showing coagulase negative staph x 1. No acute complaints overnight. Pending prior auth for DC [employer], not obtained today. Hemodynamically stable cleared for DC. 06/24/2022 Patient is evaluated today resting in bed comfortable. No acute events overnight. Continues off antibiotics. Blood culture finalized to show bacillus species and repeat blood culture has been taken today. Remains off antibiotics. Labs from today show white count of 3.69. Kidney function stable. AST/ALT and Alk phos are elevated. Levels will be trended. No labs available for comparison. Review of Systems Constitutional: Denied any fatigue denied any fever. Cardio vascular: denied any chest pain, palpitations Gastrointestinal: denied any nausea, vomiting, diarrhea Pulmonary: Denied any shortness of breath cough Neurologic denied any new focal deficits All inpatient medications were reviewed and appropriate changes in these medications as dictated in the interval history and assessment and plan. Physical examination: GENERAL: BMI 34, reclining in bed, comfortable and resting. Alert and oriented x 3. HEENT: Pupils equal. Conjunctiva normal. External appearance of nose and ears normal, oral cavity grossly normal. normocephalic. HEART: First and second heart sounds are normal; no edema. LUNGS: Respiratory rate normal; clear to auscultation. ABDOMEN: Soft, nontender, liver spleen not palpable, no masses palpable. Chronic IDC in place. MUSCULOSKELETAL:No Clubbing/cyanosis;muscles-grossly intact. Evidence of OA NEUROLOGICAL: Cranial nerves grossly intact; no facial asymmetry, power and sensation grossly intact. Assessment and Plan -Asymptomatic bacteriuria. From chronic Matthews catheter. Urine culture showing pseudomonas. Currently not on antibiotics. ID following. Chronic bacterurea. -Chronic bladder dysfunction with chronic Matthews catheter. Matthews catheter was last changed 5 days prior to admission -Chronic medical debility from underlying multiple sclerosis Patient does use a wheelchair/motorized wheelchair. -Right hemiparesis from multiple sclerosis -Muscle spasms Baclofen. -Multiple sclerosis, chronic mayzent -Elevated transaminases unclear etiology and follow up CMP tomorrow. -Stage 1 sacral pressure ulcer continue with pressure offloading -DO NOT RESUSCITATE per patient wishes Patient been accepted at [facility] [place], pending authorization from insurance company which was not obtained today. Patient will be monitored over the weekend as Saturday no social work/liason available for DC planning. D/C likely saturday to . Continue current supportive care. Blood culture following up pending. Repeat CMP in the AM. The impression and plan of care has been dictated by Nataliia Carpenter, Nurse Practitioner as directed. Dr. Alessandra MD I have performed a history and physical examination and medical decision making of this patient, discussed the same with the dictator, and agree with the dictators assessment and plan as written, documented as a scribe. Based on total visit time, I have performed more than 50% of this visit. Objective - Vital Signs Vital signs: Vital Signs Temp 98.3 F 06/24/22 07:00 Pulse 74 06/24/22 07:00 Resp 17 06/24/22 07:00 BP 129/72 06/24/22 07:00 Pulse Ox 95 06/24/22 07:00 FiO2 Intake & Output 06/23/22 06/24/22 06/24/22 18:59 06:59 18:59 Intake Total 1046 120 Output Total 1500 1650 Balance -454 -1650 120 Intake: Oral 1046 120 Output: Urine 1500 1650 Other: Voiding Method Indwelling Catheter Indwelling Catheter Indwelling Catheter # Bowel Movements 2 1 - Labs CBC & Chem 7: 06/24/22 06:09 06/24/22 06:09 Labs: Abnormal Lab Results - Last 24 Hours (Table) 06/24/22 06/24/22 Range/Units 06:09 06:09 WBC 3.69 L (4.50-10.00) X 10*3/uL RDW 15.5 H (11.5-14.5) % Lymphocytes # 0.12 L (0.90-5.00) X 10*3/uL Carbon Dioxide 28.6 H (20.0-27.5) mmol/L BUN/Creatinine Ratio 22.12 H (12.00-20.00) Ratio Total Bilirubin <0.15 L (0.30-1.20) mg/dL AST 37 H (13-35) U/L ALT 66 H (8-44) U/L Alkaline Phosphatase 258 H (41-126) U/L Microbiology - Last 24 Hours (Table) 06/20/22 19:40 Blood Culture Gram Stain - Preliminary Blood 06/20/22 19:40 Blood Culture - Final Blood 06/20/22 19:30 Blood Culture Gram Stain - Preliminary Blood Blood Culture - Preliminary Coagulase Negative Staph 06/20/22 16:05 Urine Culture - Final Urine,Catheterized Pseudomonas aeruginosa Assessment and Plan Time with Patient: Less than 30
--- NOTE | 2022-06-24 23:25 | P.PN ---
Subjective Progress Note Date: 06/24/22 Principal diagnosis: Positive urine culture with Pseudomonas Patient is a 57-year-old female with a past medical history significant for MS in this patient also with a history of recurrent UTI patient apparently recently did have a urine culture done in the outpatient setting on 06/13/2022 came back positive with Pseudomonas aeruginosa that was resistant to Cipro and Levaquin as the patient was sent to the ER for IV antibiotic therapy, patient did have MS and a chronic indwelling Matthews catheter. On today's evaluation that is 06/24/2022, the patient continues to be afebrile, the patient denies chest pain or shortness of breath or cough , the Pt denies having any nausea no vomiting no abdominal pain and no diarrhea Objective - Vital Signs Vital signs: Vital Signs Temp 98.3 F 06/24/22 07:00 Pulse 74 06/24/22 07:00 Resp 17 06/24/22 07:00 BP 129/72 06/24/22 07:00 Pulse Ox 95 06/24/22 07:00 FiO2 Intake & Output 06/23/22 06/24/22 06/24/22 18:59 06:59 18:59 Intake Total 1046 120 Output Total 1500 1650 Balance -454 -1650 120 Intake: Oral 1046 120 Output: Urine 1500 1650 Other: Voiding Method Indwelling Catheter Indwelling Catheter Indwelling Catheter # Bowel Movements 2 1 - Exam GENERAL DESCRIPTION: Middle-aged female lying in bed in no distress RESPIRATORY SYSTEM: Unlabored breathing , decreased breath sounds at bases HEART: S1 S2 regular rate and rhythm , ABDOMEN: Soft , no tenderness EXTREMITIES: No edema feet - Labs CBC & Chem 7: 06/24/22 06:09 06/24/22 06:09 Labs: Abnormal Lab Results - Last 24 Hours (Table) 06/24/22 06/24/22 Range/Units 06:09 06:09 WBC 3.69 L (4.50-10.00) X 10*3/uL RDW 15.5 H (11.5-14.5) % Lymphocytes # 0.12 L (0.90-5.00) X 10*3/uL Carbon Dioxide 28.6 H (20.0-27.5) mmol/L BUN/Creatinine Ratio 22.12 H (12.00-20.00) Ratio Total Bilirubin <0.15 L (0.30-1.20) mg/dL AST 37 H (13-35) U/L ALT 66 H (8-44) U/L Alkaline Phosphatase 258 H (41-126) U/L Microbiology - Last 24 Hours (Table) 06/20/22 19:40 Blood Culture Gram Stain - Preliminary Blood 06/20/22 19:40 Blood Culture - Final Blood 06/20/22 19:30 Blood Culture Gram Stain - Preliminary Blood Blood Culture - Preliminary Coagulase Negative Staph 06/20/22 16:05 Urine Culture - Final Urine,Catheterized Pseudomonas aeruginosa Assessment and Plan (1) Positive urine culture Current Visit: Yes Status: Acute Code(s): R82.79 - OTHER ABNORMAL FINDINGS ON MICROBIOLOG EXAMINATION OF URINE SNOMED Code(s): 357923621 (2) Stage I pressure ulcer of sacral region Current Visit: Yes Status: Acute Code(s): L89.151 - PRESSURE ULCER OF SACRAL REGION, STAGE 1 SNOMED Code(s): 26680623062770 Plan: 1patient presented to hospital with a positive urine culture done in the outpatient setting growing Pseudomonas aeruginosa likely representing Matthews colonization versus asymptomatic bacteriuria as the patient currently do not have any urinary symptoms not running any fever White count is normal this was explained to the patient and also discussed with her primary care physician in the outpatient setting on the phone. 2there is no need for antibiotic therapy patient will monitor closely off antibiotic therapy at this point 3patient did have a stage I sacral pressure ulcer given advice skin barrier cream and keep the area of the pressure with the frequent change of position 4-patient with a positive blood culture with staph epi likely skin contamination and no need for vancomycin, blood cultures has been repeated and CRP is normal Time with Patient: Less than 30
[2022-06-25] MEDS: ACETAMINOPHEN TAB 325 MG TAB PO PRN ×3 (00:14→18:02)
[2022-06-25] MEDS: GABAPENTIN 100 MG CAP PO SCH (07:41)
[2022-06-25] MEDS: BACLOFEN 10 MG TAB PO SCH ×2 (08:48→13:28)
[2022-06-25] MEDS: CHOLECALCIFEROL 125 MCG (5000 IU) TABLET PO SCH ×2 (08:48→17:51)
[2022-06-25] MEDS: FAMOTIDINE 20 MG TAB PO SCH (08:48)
[2022-06-25] MEDS: ENOXAPARIN 40 MG/0.4 ML SYRINGE SQ SCH (08:48)
[2022-06-25 08:51] VITALS: RESP 16
[2022-06-25] MEDS: SIPONIMOD 2 MG PO SCH (13:29)
[2022-06-25 15:22] VITALS: BP 118/66; TEMP 97.5
[2022-06-25 16:31] LABS: ALT 72 U/L (4-34); AST 55 U/L (14-36); African American GFR (CKD) >90 (>60 ml/min/1.73 sqM); Albumin 4.2 g/dL (3.5-5.0); Albumin/Globulin Ratio 1.5; Alkaline Phosphatase 212 U/L (38-126); Anion Gap 8 mmol/L; Blood Urea Nitrogen 15 mg/dL (7-17); Calcium 9.9 mg/dL (8.4-10.2); Carbon Dioxide 30 mmol/L (22-30); Chloride 100 mmol/L (98-107); Globulin 2.8 g/dL; Glucose 131 mg/dL (74-99); Non-African American GFR(CKD) >90 (>60 ml/min/1.73 sqM); Potassium 4.5 mmol/L (3.5-5.1); Sodium 138 mmol/L (137-145); Total Bilirubin 0.2 mg/dL (0.2-1.3)
--- NOTE | 2022-06-25 23:14 | P.PN ---
Subjective Progress Note Date: 06/25/22 Principal diagnosis: Positive urine culture with Pseudomonas Patient is a 57-year-old female with a past medical history significant for MS in this patient also with a history of recurrent UTI patient apparently recently did have a urine culture done in the outpatient setting on 06/13/2022 came back positive with Pseudomonas aeruginosa that was resistant to Cipro and Levaquin as the patient was sent to the ER for IV antibiotic therapy, patient did have MS and a chronic indwelling Matthews catheter. On today's evaluation that is 06/25/2022, the patient remains to be afebrile, the patient denies chest pain or shortness of breath or cough , the patient was complaining of some upset stomach and apparently did have a loose stool but denies anyAbdominal pain Objective - Vital Signs Vital signs: Vital Signs Temp 98 F 06/25/22 07:00 Pulse 73 06/25/22 07:00 Resp 16 06/25/22 07:00 BP 118/72 06/25/22 07:00 Pulse Ox 94 L 06/25/22 07:00 FiO2 Intake & Output 06/24/22 06/25/22 06/25/22 18:59 06:59 18:59 Intake Total 210 Output Total 1000 1600 Balance -790 -1600 Intake: Oral 210 Output: Urine 1000 1600 Other: Voiding Method Indwelling Catheter Indwelling Catheter Indwelling Catheter # Bowel Movements 1 - Exam GENERAL DESCRIPTION: Middle-aged female lying in bed in no distress RESPIRATORY SYSTEM: Unlabored breathing , decreased breath sounds at bases HEART: S1 S2 regular rate and rhythm , ABDOMEN: Soft , no tenderness EXTREMITIES: No edema feet - Labs CBC & Chem 7: 06/24/22 06:09 06/25/22 15:49 Labs: Microbiology - Last 24 Hours (Table) 06/24/22 06:09 Blood Culture - Preliminary Blood No Growth after 24 hours 06/20/22 19:40 Blood Culture Gram Stain - Final Blood Blood Culture - Final Bacillus species Not Anthracis Assessment and Plan (1) Positive urine culture Status: Acute Code(s): R82.79 - OTHER ABNORMAL FINDINGS ON MICROBIOLOG EXAMINATION OF URINE SNOMED Code(s): 825898155 (2) Stage I pressure ulcer of sacral region Status: Acute Code(s): L89.151 - PRESSURE ULCER OF SACRAL REGION, STAGE 1 SNOMED Code(s): 55784421595689 Plan: 1patient presented to hospital with a positive urine culture done in the outpa tient setting growing Pseudomonas aeruginosa likely representing Matthews colonization versus asymptomatic bacteriuria as the patient currently do not have any urinary symptoms not running any fever White count is normal this was explained to the patient and also discussed with her primary care physician in the outpatient setting on the phone. 2there is no need for antibiotic therapy patient will monitor closely off antibiotic therapy at this point 3patient did have a stage I sacral pressure ulcer given advice skin barrier cream and keep the area of the pressure with the frequent change of position 4-patient with a positive blood culture with staph epi likely skin contamination and no need for vancomycin, blood cultures has been repeated which is so far negative CRP is normal 5-patient did have some stomach upset and diarrhea stool for C. diff has been requested will treat if positive encourage her to increase yogurt and probiotics intake Time with Patient: Less than 30
--- NOTE | 2022-06-26 20:25 | P.DS ---
Providers Date of admission: 06/20/22 17:46 Attending physician: Raffi Matamoros Consults: 06/20/22 17:46 Consult Physician Routine Consulting Provider: Tsering Mason Consult Reason/Comments: urinary tract infection Do you want consulting provider notified?: Yes Primary care physician: Al Alan MD Hospital Course: Final Diagnosis -Asymptomatic bacteriuria. From chronic Pemberton catheter -Chronic bladder dysfunction with chronic Pemberton catheter. Pemberton catheter was last changed 5 days prior to admission -Chronic medical debility from underlying multiple sclerosis, Patient does use a wheelchair/motorized wheelchair. -Right hemiparesis from multiple sclerosis -Muscle spasms -Multiple sclerosis, chronic -Elevated transaminases unclear etiology and follow up CMP on discharge -Stage 1 sacral pressure ulcer continue with pressure offloading No Code Discharge Disposition Patient is stable for discharge home. Patient has been cleared by infectious disease. No antibiotics recommended on discharge. Patient will continue same home medications. Patient to repeat complete metabolic panel for monitoring of LFT's on discharge in 2 to 3 days. Patient to [facility] with [facility]. Patient follows with Dr. Alan from visiting physicians. Recommend close follow up. Hospital Course This is a 57 year old female who is admitted for possible UTI. History of Multiple sclerosis and right hemiparesis from the same. Patient lives at home with who is her primary caregiver. Patient uses a lift at home and also motorized wheelchair. Patient has chronic pemberton which is changed in the EC on admission, changed 5 days prior to admission also. Patient is admitted with concern for acute urinary tract infection. Urine culture grew pseudomonas. Patient has been evaluated by ID and currently recommending no antibiotics on discharge. Patient has chronic indwelling catheter and urinalysis is not suggestive of current infection at this time. Patient has chronic bacteriruea and is asymptomatic. Blood culture showing coagulase negative staph x 1 and also bacillus species not anthracis which are both likely contaminent species. Repeat blood culture is negative. Patient was cleared by ID for discharge. Patient did have elevated LFT's with unclear significant and are improving. Patient is given script to repeat labs on discharge with outpatient follow up. Patient originally pursued rehab and was kept over the weekend for authorization which was denied. Patient will return home with . 06/25/2022 Patient is evaluated today resting in bed. Did have complaint of nausea this morning which had improved with tums. Had a loose bowel movement the day prior. No further reports of loose stools. No fever and no white count. Patient is denying chest pain and denying shortness of breath. Lungs are clear, S1 S2 auscultated, abdomen is soft and nontender. Most recent labs showing white count of 3.69, sodium 138, potassium 4.5, BUN 15, creatinine 0.61. Sodium of 138, potassium 4.5, BUN 15, creatinine 0.61, AST 55, ALT 72, alk phos 212. Patient is afebrile, heart rate 73, blood pressure 118/66, 100% on room air. Please see medication reconciliation for a list of current medication. Thank you for allowing us to participate in the care of this patient. The impression and plan of care has been dictated by Nataliia Carpenter, Nurse Practitioner as directed. Dr. Alessandra MD I have performed a history and physical examination and medical decision making of this patient, discussed the same with the dictator, and agree with the dictators assessment and plan as written, documented as a scribe. Based on total visit time, I have performed more than 50% of this visit. Patient Condition at Discharge: Good Plan - Discharge Summary New Discharge Prescriptions: Continue Cholecalciferol [Vitamin D3 (125 Mcg = 5000 Iu)] 125 mcg PO BID@0900,1600 Siponimod [Mayzent] 2 mg PO DAILY@1400 Gabapentin [Neurontin] 100 mg PO BID #6 cap Baclofen [Lioresal] 40 mg PO HS Baclofen [Lioresal] 20 mg PO BID@0900,1200 Discharge Medication List Baclofen [Lioresal] 20 mg PO BID@0900,1200 06/20/22 [History] Baclofen [Lioresal] 40 mg PO HS 06/20/22 [History] Cholecalciferol [Vitamin D3 (125 Mcg = 5000 Iu)] 125 mcg PO BID@0900,1600 06/20/22 [History] Siponimod [Mayzent] 2 mg PO DAILY@1400 06/20/22 [History] Gabapentin [Neurontin] 100 mg PO BID #6 cap 06/22/22 [Rx] Follow up Appointment(s)/Referral(s): [facility], [NON-STAFF] - 1 Week Al Alan MD [Primary Care Provider] - 1-2 days Ambulatory/Diagnostic Orders: Comprehensive Metabolic Panel [LAB.AMB] Time Frame: 3 Days, Location: None [facility] Patient Instructions/Handouts: Multiple Sclerosis (DC) Activity/Diet/Wound Care/Special Instructions: No antibiotics required on discharge. Recommend to repeat lab outpatient in 2 to 3 days to monitor liver enzymes. Discharge Disposition: HOME WITH HOME HEALTH SERVICES
== END 2022-06-25 20:47 | disposition home health service (06) ==
LOC: EC 14:52 → 6NMEDSUR 17:46
PROVIDERS: ADMIT Hospitalist; ATTEND Hospitalist
DX: T83.518A Infection and inflammatory reaction due to other urinary catheter, initial encounter (principal); N39.0 Urinary tract infection, site not specified; G35 Multiple sclerosis; L89.151 Pressure ulcer of sacral region, stage 1; M62.838 Other muscle spasm; R74.01 Elevation of levels of liver transaminase levels; G81.91 Hemiplegia, unspecified affecting right dominant side; B96.5 Pseudomonas (aeruginosa) (mallei) (pseudomallei) as the cause of diseases classified elsewhere; Z79.899 Other long term (current) drug therapy; Z90.49 Acquired absence of other specified parts of digestive tract; Z87.891 Personal history of nicotine dependence; Z66 Do not resuscitate; Z87.440 Personal history of urinary (tract) infections; Y84.6 Urinary catheterization as the cause of abnormal reaction of the patient, or of later complication, without mention of misadventure at the time of the procedure
CPT/HCPCS: 96372 ×4; 99284; 36415; 97530 ×2; 97162; 97166; 80053 ×2; 83605; 85025 ×2; 86140; 81001; 87040 ×2; 87086; 87077; 87186; G0378 ×6; J1650 ×4

== ENCOUNTER 2022-07-21 15:31 | Emergency (ER) | payer OTHER ==
[2022-07-21 15:49] VITALS: BP 143/93; PULSE 72; RESP 18; TEMP 98
[2022-07-21 16:38] LABS: Basophils % (A) 0 %; Eosinophils % (A) 1 %; HCT 42.8 % (34.0-46.0); HGB 13.7 gm/dL (11.4-16.0); Lymphocytes # (A) 0.2 k/uL (1.0-4.8); Lymphocytes % (A) 5 %; MCH 30.3 pg (25.0-35.0); MCHC 32.1 g/dL (31.0-37.0); MCV 94.4 fL (80.0-100.0); Mean Platelet Volume 10.5; Monocytes # (A) 0.3 k/uL (0-1.0); Monocytes % (A) 8 %; Neutrophils # (A) 3.7 k/uL (1.3-7.7); Neutrophils % (A) 84 %; Platelet Count 274 k/uL (150-450); RBC 4.53 m/uL (3.80-5.40); RDW 14.7 % (11.5-15.5); WBC 4.4 k/uL (3.8-10.6)
[2022-07-21 16:46] LABS: ALT 174 U/L (4-34); AST 120 U/L (14-36); African American GFR (CKD) >90 (>60 ml/min/1.73 sqM); Albumin 4.3 g/dL (3.5-5.0); Alkaline Phosphatase 322 U/L (38-126); Anion Gap 8 mmol/L; Blood Urea Nitrogen 16 mg/dL (7-17); Calcium 9.6 mg/dL (8.4-10.2); Carbon Dioxide 25 mmol/L (22-30); Chloride 99 mmol/L (98-107); Glucose 89 mg/dL (74-99); Non-African American GFR(CKD) >90 (>60 ml/min/1.73 sqM); Sodium 132 mmol/L (137-145); Total Bilirubin 0.5 mg/dL (0.2-1.3); Total Protein 7.3 g/dL (6.3-8.2)
[2022-07-21 16:50] LABS: Potassium 5.4 mmol/L (3.5-5.1)
--- NOTE | 2022-07-21 16:54 | ED ---
General Adult HPI - General Chief complaint: Skin/Abscess/Foreign Body Stated complaint: Bed sores Time Seen by Provider: 07/21/22 15:50 Source: patient, RN notes reviewed Mode of arrival: EMS - History of Present Illness Initial comments: 57 year old female with a past medical history presents to the emergency department with a chief complaint of wound problem. Patient reports that she has had chronic bed sores, however in the last week, her at home nurse believes her wound has looked worse. She also reports a "foul smell" from the site. She denies bleeding, discharge from the site. She denies fevers, chills, fatigue, chest pain, palpitations, shortness of breath. She is bed-bound. Denies pain to the area. - Related Data Home Medications Medication Instructions Recorded Confirmed Baclofen [Lioresal] 20 mg PO BID@0900,1200 06/20/22 06/20/22 Baclofen [Lioresal] 40 mg PO HS 06/20/22 06/20/22 Cholecalciferol [Vitamin D3 (125 125 mcg PO BID@0900,1600 06/20/22 06/20/22 Mcg = 5000 Iu)] Siponimod [Mayzent] 2 mg PO DAILY@1400 06/20/22 06/20/22 Previous Rx's Medication Instructions Recorded Gabapentin [Neurontin] 100 mg PO BID #6 cap 06/22/22 Allergies Allergy/AdvReac Type Severity Reaction Status Date / Time No Known Allergies Allergy Verified 06/20/22 15:40 Review of Systems ROS Statement: Those systems with pertinent positive or pertinent negative responses have been documented in the HPI. ROS Other: All systems not noted in ROS Statement are negative. Past Medical History Past Medical History: Musculoskeletal Disorder Additional Past Medical History / Comment(s): MS, non ambulatory for 2 years. chronic urinary catheter. multiple UTI's History of Any Multi-Drug Resistant Organisms: None Reported Past Surgical History: Cholecystectomy Past Anesthesia/Blood Transfusion Reactions: No Reported Reaction Past Psychological History: No Psychological Hx Reported Smoking Status: Former smoker Past Alcohol Use History: None Reported Past Drug Use History: None Reported - Past Family History Mother Family Medical History: No Reported History Additional Family Medical History / Comment(s): passed at age 74 Father Family Medical History: No Reported History General Exam General appearance: alert, in no apparent distress Head exam: Present: atraumatic, normocephalic, normal inspection Eye exam: Present: normal appearance, PERRL, EOMI. Absent: scleral icterus, conjunctival injection, periorbital swelling ENT exam: Present: normal exam, mucous membranes moist Neck exam: Present: normal inspection. Absent: tenderness, meningismus, lymphadenopathy Respiratory exam: Present: normal lung sounds bilaterally. Absent: respiratory distress, wheezes, rales, rhonchi, stridor Cardiovascular Exam: Present: regular rate, normal rhythm, normal heart sounds. Absent: systolic murmur, diastolic murmur, rubs, gallop, clicks GI/Abdominal exam: Present: soft, normal bowel sounds. Absent: distended, tenderness, guarding, rebound, rigid Rectal exam: Present: other (Stage 1 to 2 pressure ulcer to sacral region ) External exam: Present: other (Patient has an indwelling Matthews catheter present) Extremities exam: Present: normal inspection, full ROM, normal capillary refill. Absent: tenderness, pedal edema, joint swelling, calf tenderness Back exam: Present: normal inspection Neurological exam: Present: alert, oriented X3, CN II-XII intact Psychiatric exam: Present: normal affect, normal mood Skin exam: Present: warm, dry, intact, normal color. Absent: rash Course Vital Signs 07/21/22 15:42 Temperature 98 F Pulse Rate 72 Respiratory 18 Rate Blood Pressure 143/93 O2 Sat by Pulse 99 Oximetry Medical Decision Making - Medical Decision Making Was pt. sent in by a medical professional or institution (, PA, PRESS ASSISTANT AND FEEDER, urgent care, hospital, or [facility]...) When possible be specific @ -[No] Did you speak to anyone other than the patient for history (EMS, parent, family, police, friend...)? What history was obtained from this source @ -[No] Did you review nursing and triage notes (agree or disagree)? Why? @ -[I reviewed and agree with nursing and triage notes] Were old charts reviewed (outside hosp., previous admission, EMS record, old EKG, old radiological studies, urgent care reports/EKG's, [facility] records)? Report findings @ -[No old charts were reviewed] Differential Diagnosis (chest pain, altered mental status, abdominal pain women, abdominal pain men, vaginal bleeding, weakness, fever, dyspnea, syncope, headache, dizziness, GI bleed, back pain, seizure, CVA, palpatations, mental health, musculoskeletal)? @ -[not applicable] EKG interpreted by me (3pts min.). @ -[As above] X-rays interpreted by me (1pt min.). @ -XR negative for evidence of fracture or dislocation CT interpreted by me (1pt min.). @ -[None done] U/S interpreted by me (1pt. min.). @ -[None done] What testing was considered but not performed or refused? (CT, X-rays, U/S, labs)? Why? @ -[None] What meds were considered but not given or refused? Why? @ -[None] Did you discuss the management of the patient with other professionals (professionals i.e. , PA, PRESS ASSISTANT AND FEEDER, lab, RT, psych nurse, social human services assistants, circus artist, teacher, annual giving officer, briefcase sewer)? Give summary @ -[No] Was smoking cessation discussed for >3mins.? @ -[No] Was critical care preformed (if so, how long)? @ -[No] Were there social determinants of health that impacted care today? How? (Homelessness, low income, unemployed, alcoholism, drug addiction, transportation, low edu. Level, literacy, decrease access to med. care, fpc, rehab)? @ -[No] Was there de-escalation of care discussed even if they declined (Discuss DNR or withdrawal of care, Hospice)? DNR status @ -[No] What co-morbidities impacted this encounter? (DM, HTN, Smoking, COPD, CAD, Cancer, CVA, ARF, Chemo, Hep., AIDS, mental health diagnosis, sleep apnea, morbid obesity)? @ -[None] Was patient admitted / discharged? Hospital course, mention meds given and route, prescriptions, significant lab abnormalities, going to OR and other pertinent info. @ -Discharged. This is a 57-year-old female who presents the emergency department with wound check. Patient had a thorough history and physical exam performed physical exam essentially unremarkable. Heart rate regular rate and rhythm, lungs clear to auscultation bilaterally abdomen is soft and nontender. Pt has a stage I/II pressure ulcer in the sacral region. Patient had labwork and imaging which was essentially unremarkable. I discussed the results in detail with the patient verbalized understanding and all qu estions were addressed. Return precautions were discussed at length. Patient was discharged in stable condition. She was encouraged to follow up with her PCP in 1-2 days. Bhaskar discussed witd Dr. Pereira, [facility] who agrees with plan of care Undiagnosed new problem with uncertain prognosis? @ -[No] Drug Therapy requiring intensive monitoring for toxicity (Heparin, Nitro, Insulin, Cardizem)? @ -[No] Were any procedures done? @ -[No] Diagnosis/symptom? @ - chronic pressure ulcer Acute, or Chronic, or Acute on Chronic? @ -acute on chronic Uncomplicated (without systemic symptoms) or Complicated (systemic symptoms)? @ - uncomplicated Side effects of treatment? @ -[No] Exacerbation, Progression, or Severe Exacerbation? @ -[No] Poses a threat to life or bodily function? How? (Chest pain, [place], [place], pneumonia, PE, COPD, DKA, ARF, appy, cholecystitis, CVA, Diverticulitis, Homicidal, Suicidal, threat to staff... and all critical care pts) @ -low likelihood - Lab Data Result diagrams: 07/21/22 16:04 07/21/22 16:04 Lab Results 07/21/22 07/21/22 07/21/22 Range/Units 16:04 16:04 16:04 WBC 4.4 (3.8-10.6) k/uL RBC 4.53 (3.80-5.40) m/uL Hgb 13.7 (11.4-16.0) gm/dL Hct 42.8 (34.0-46.0) % MCV 94.4 (80.0-100.0) fL MCH 30.3 (25.0-35.0) pg MCHC 32.1 (31.0-37.0) g/dL RDW 14.7 (11.5-15.5) % Plt Count 274 (150-450) k/uL MPV 10.5 Neutrophils % 84 % Lymphocytes % 5 % Monocytes % 8 % Eosinophils % 1 % Basophils % 0 % Neutrophils # 3.7 (1.3-7.7) k/uL Lymphocytes # 0.2 L (1.0-4.8) k/uL Monocytes # 0.3 (0-1.0) k/uL Eosinophils # 0.0 (0-0.7) k/uL Basophils # 0.0 (0-0.2) k/uL Sodium 132 L (137-145) mmol/L Potassium 5.4 H (3.5-5.1) mmol/L Chloride 99 (98-107) mmol/L Carbon Dioxide 25 (22-30) mmol/L Anion Gap 8 mmol/L BUN 16 (7-17) mg/dL Creatinine 0.57 (0.52-1.04) mg/dL Est GFR (CKD-EPI)AfAm >90 (>60 ml/min/1.73 sqM) Est GFR (CKD-EPI)NonAf >90 (>60 ml/min/1.73 sqM) Glucose 89 (74-99) mg/dL Plasma Lactic Acid Josh (0.7-2.0) mmol/L Calcium 9.6 (8.4-10.2) mg/dL Total Bilirubin 0.5 (0.2-1.3) mg/dL AST 120 H (14-36) U/L ALT 174 H (4-34) U/L Alkaline Phosphatase 322 H (38-126) U/L Total Protein 7.3 (6.3-8.2) g/dL Albumin 4.3 (3.5-5.0) g/dL Urine Color Yellow Urine Appearance Turbid H (Clear) Urine pH 8.0 (5.0-8.0) Ur Specific [place] 1.014 (1.001-1.035) Urine Protein Trace H (Negative) Urine Glucose (UA) Negative (Negative) Urine Ketones Negative (Negative) Urine Blood Small H (Negative) Urine Nitrite Negative (Negative) Urine Bilirubin Negative (Negative) Urine Urobilinogen <2.0 (<2.0) mg/dL Ur Leukocyte Esterase Large H (Negative) Urine RBC 4 (0-5) /hpf Urine WBC 7 H (0-5) /hpf Urine Bacteria Many H (None) /hpf Urine Mucus Rare H (None) /hpf 07/21/22 Range/Units 16:04 WBC (3.8-10.6) k/uL RBC (3.80-5.40) m/uL Hgb (11.4-16.0) gm/dL Hct (34.0-46.0) % MCV (80.0-100.0) fL MCH (25.0-35.0) pg MCHC (31.0-37.0) g/dL RDW (11.5-15.5) % Plt Count (150-450) k/uL MPV Neutrophils % % Lymphocytes % % Monocytes % % Eosinophils % % Basophils % % Neutrophils # (1.3-7.7) k/uL Lymphocytes # (1.0-4.8) k/uL Monocytes # (0-1.0) k/uL Eosinophils # (0-0.7) k/uL Basophils # (0-0.2) k/uL Sodium (137-145) mmol/L Potassium (3.5-5.1) mmol/L Chloride (98-107) mmol/L Carbon Dioxide (22-30) mmol/L Anion Gap mmol/L BUN (7-17) mg/dL Creatinine (0.52-1.04) mg/dL Est GFR (CKD-EPI)AfAm (>60 ml/min/1.73 sqM) Est GFR (CKD-EPI)NonAf (>60 ml/min/1.73 sqM) Glucose (74-99) mg/dL Plasma Lactic Acid Josh 0.8 (0.7-2.0) mmol/L Calcium (8.4-10.2) mg/dL Total Bilirubin (0.2-1.3) mg/dL AST (14-36) U/L ALT (4-34) U/L Alkaline Phosphatase (38-126) U/L Total Protein (6.3-8.2) g/dL Albumin (3.5-5.0) g/dL Urine Color Urine Appearance (Clear) Urine pH (5.0-8.0) Ur Specific [place] (1.001-1.035) Urine Protein (Negative) Urine Glucose (UA) (Negative) Urine Ketones (Negative) Urine Blood (Negative) Urine Nitrite (Negative) Urine Bilirubin (Negative) Urine Urobilinogen (<2.0) mg/dL Ur Leukocyte Esterase (Negative) Urine RBC (0-5) /hpf Urine WBC (0-5) /hpf Urine Bacteria (None) /hpf Urine Mucus (None) /hpf Disposition Clinical Impression: Pressure ulcer, stage 1 Disposition: HOME SELF-CARE Condition: Stable Instructions (If sedation given, give patient instructions): How to Help a Person Change Position Safely (DC), Chronic Wounds (ED) Additional Instructions: Please return to the nearest emergency department if symptoms worsen or persist Please return to the nearest ER if symptoms of fever or shortness of breath Is patient prescribed a controlled substance at d/c from ED?: No Referrals: Al Alan MD [Primary Care Provider] - 1-2 days Time of Disposition: 18:16
--- NOTE | 2022-07-21 16:55 | XR ---
EXAMINATION TYPE: XR lumbar spine 2 or 3V DATE OF EXAM: 07/21/2022 CLINICAL HISTORY: pain TECHNIQUE: Three views of the lumbar spine are submitted. COMPARISON: None. FINDINGS: Curvature convex to the right. There are 5 lumbar type vertebral bodies identified. The lumbar spine shows satisfactory alignment without evidence of acute fracture or dislocation. Vertebral body heigh ts are within normal limits. Disc spaces are within normal limits. The overlying soft tissue appea rs unremarkable. IMPRESSION: No acute fracture or dislocation is seen in the lumbar spine. ICD 10 NO FRACTURE, INITIAL EVALUATION
[2022-07-21 17:23] LABS: Appearance,Urine Turbid (Clear); Bacteria,Urine Many /hpf; Bilirubin,Urine Negative (Negative); Blood,Urine Small (Negative); Color,Urine Yellow; Glucose,Urine (UA) Negative (Negative); Ketones,Urine Negative (Negative); Leukocyte Esterase,Urine Large (Negative); Mucus,Urine Rare /hpf; Nitrite,Urine Negative (Negative); Protein,Urine Trace (Negative); RBC,Urine 4 /hpf (0-5); Specific Gravity,Urine 1.014 (1.001-1.035); Urobilinogen,Urine <2.0 mg/dL (<2.0); WBC,Urine 7 /hpf (0-5)
== END 2022-07-21 19:21 | disposition home or self-care (01) ==
LOC: EC 15:31
DX: L89.151 Pressure ulcer of sacral region, stage 1 (principal); Z87.891 Personal history of nicotine dependence
CPT/HCPCS: 36415; 72100; 80053; 81001; 83605; 85025; 99284